=== PATIENT | female | born 1975 | race American Indian/Alaskan Native ===

== ENCOUNTER 2016-09-27 11:20 | Emergency (ER) | payer OTHER ==
[2016-09-27 11:30] VITALS: BP 104/70; PULSE 90; RESP 16; TEMP 98; O2SAT 98
--- NOTE | 2016-09-27 12:06 | C.PDOC ---
History Of Present Illness 40-year-old female, presents to the emergency department with complaints of allergic reaction. Patient states she started taking a dietary supplement ( Spirulina) ten days ago, and developed an itchy rash on the 4th day; Patient stopped taking the supplement, but symptoms persist, resulting in her coming to ED for evaluation. No shortness of breath or chest pain. No fevers. Time Seen by Provider: 09/27/16 11:56 Chief Complaint (Nursing): Allergic Reaction History Per: Patient History/Exam Limitations: no limitations Onset/Duration Of Symptoms: Days Current Symptoms Are (Timing): Still Present Possible Cause: Other (Supplement) Past Medical History Reviewed: Historical Data, Nursing Documentation, Vital Signs Vital Signs: Last Vital Signs Temp 98 F 09/27/16 11:26 Pulse 90 09/27/16 11:26 Resp 16 09/27/16 11:26 BP 104/70 09/27/16 11:26 Pulse Ox 98 09/27/16 15:14 - Medical History PMH: No Chronic Diseases Family History: States: No Known Family Hx - Social History Hx Alcohol Use: No Hx Substance Use: Yes Review Of Systems Constitutional: Negative for: Fever Respiratory: Negative for: Shortness of Breath Gastrointestinal: Negative for: Nausea, Vomiting Skin: Positive for: Rash Physical Exam - Physical Exam Appears: Non-toxic, No Acute Distress Skin: Other (Diffuse urticaria) Cardiovascular: Rhythm Regular, No Murmur Respiratory: Normal Breath Sounds, No Rales, No Rhonchi, No Wheezing Gastrointestinal/Abdominal: Soft, No Tenderness Neurological/Psych: Oriented x3 ED Course And Treatment O2 Sat by Pulse Oximetry: 98 Medical Decision Making Medical Decision Making: Post meds feeling better lungs continue clear Plan dc with meds Disposition - Disposition Disposition: HOME/ ROUTINE Disposition Time: 12:12 Condition: GOOD Prescriptions: Famotidine [Pepcid] 1 tab PO BID #30 tab Loratadine [Claritin] 1 tab PO DAILY #20 tab Prednisone [Deltasone] 2 tab PO DAILY #20 tablet Prednisone [Deltasone] 2 tab PO DAILY #10 tablet Instructions: Urticaria (ED) - Clinical Impression Clinical Impression: Allergic urticaria - Scribe Statement The provider has reviewed the documentation as recorded by the Scribe (Curtis Singh) All medical record entries made by the Scribe were at my direction and personally dictated by me. I have reviewed the chart and agree that the record accurately reflects my personal performance of the history, physical exam, medical decision making, and the department course for this patient. I have also personally directed, reviewed, and agree with the discharge instructions and disposition.
== END 2016-09-27 12:37 | disposition home or self-care (01) ==
LOC: C.ER 11:20
DX: L50.0 Allergic urticaria (principal)